=== PATIENT | female | born 1945 | race Caucasian/White ===

== ENCOUNTER 2020-09-18 17:26 | Inpatient (IN) | payer OTHER ==
[~2020-09-18] VITALS: Ht 157.5 cm; Wt 79.7 kg
--- NOTE | 2020-09-18 17:44 | NUR ---
PT BIB EMS FOR CONFUSION, ANXIETY, N/V X2DAYS. PER EMS PT CALLED THEM BECAUSE SHE WAS FEELING CONFUSED. PER EMS STROKE SCALE NEGATIVE. PT AOX0 ON ARRIVAL. HAVING TROUBLE FINDING WORDS. HX OF HTN, NEUROPATHY, IBS, ANXIETY. MONITORS CONNECTED. EKG COMPLETE. WARM BLANKETS PROVIDED. CALL LIGHT W/IN REACH.
--- NOTE | 2020-09-18 17:45 | NUR ---
REPORTED ALTERED MENTAL STATUS TO DR. HAN. REPORTED PT HAVING DIFFICULTY FINDING WORDS.
--- NOTE | 2020-09-18 17:56 | NUR ---
FLUIDS INFUSING PER DR HAN
--- NOTE | 2020-09-18 17:56 | NUR ---
DR HAN AT BEDSIDE FOR ASSESSMENT. DISCUSSED PLAN OF CARE.
[2020-09-18] MEDS ORDERED: HYDROmorphone 2 MG/ML, 1ML ONE (18:26)
[2020-09-18] MEDS ORDERED: ONDANSETRON 2MG/ML, 2ML ONE (18:26)
[2020-09-18] MEDS: HYDROmorphone 2 MG/ML, 1ML IVPush PRN ×2 (18:28→20:09)
[2020-09-18] MEDS ORDERED: SODIUM CHLORIDE 0.9% 1,000ML IVBOLUS ONE ×2 (18:30→20:00)
[2020-09-18] MEDS ORDERED: SODIUM CHLORIDE FLUSH 10ML SYR IVF ONE (18:30)
[2020-09-18] MEDS ORDERED: PLEASE ENTER ALLERGIES MC SCH (18:30)
[2020-09-18] MEDS ORDERED: ONDANSETRON 2MG/ML, 2ML IVPush ONE (18:30)
[2020-09-18 18:41] LABS: MICROSCOPIC INDICATED
[2020-09-18 18:47] LABS: ALBUMIN 3.6 g/dL (3.4-5.0); ANION GAP 12 mmol/L (5-15); CALCIUM 8.6 mg/dL (8.5-10.1); CHLORIDE 116 mmol/L (98-107)
[2020-09-18 18:51] LABS: ALANINE AMINOTRANSFERASE 25 U/L (12-78); ALKALINE PHOSPHATASE 67 U/L (45-117); BILIRUBIN,TOTAL 0.7 mg/dL (0.2-1.0); CREATININE 0.98 mg/dL (0.55-1.02)
--- NOTE | 2020-09-18 19:02 | NUR ---
REPORT GIVEN TO BARRY AMBRIZ
--- NOTE | 2020-09-18 19:15 | NUR ---
patient not present in room. opal also not in room. patient is assumed to be in testing with CT as this is the only test left for patient to complete.
[2020-09-18 19:16] LABS: BASOPHILS % (AUTO) 0 % (0-1); EOSINOPHILS % (AUTO) 0 % (1-7); LYMPHOCYTES % (AUTO) 9 % (22-44); MEAN CORPUSCULAR HGB CONC 33.7 g/dL (32.4-35.8); MONOCYTES % (AUTO) 8 % (2-9); NEUTROPHILS % (AUTO) 83 % (42-75); PLATELET COUNT 152 x10^3/uL (130-400); RED BLOOD COUNT 4.74 x10^6/uL (3.82-5.3); RED CELL DISTRIBUTION WIDTH 14.6 % (9.6-15.2)
[2020-09-18 19:17] LABS: MD NO
[2020-09-18] MEDS ORDERED: OMNIPAQUE 350 MG/ML, 100ML BOTTLE ONE (19:38)
[2020-09-18] MEDS ORDERED: TIZA2CAP PO (19:50)
[2020-09-18] MEDS ORDERED: OXYC20TA42 PO (19:50)
[2020-09-18] MEDS ORDERED: LACT10SO2 PO (19:50)
[2020-09-18] MEDS ORDERED: METO-95 PO (19:50)
[2020-09-18] MEDS ORDERED: SUCR1TAB33 PO (19:50)
[2020-09-18] MEDS ORDERED: ESZO3TAB28 PO (19:50)
[2020-09-18] MEDS ORDERED: BUPR150T8 PO (19:50)
[2020-09-18] MEDS ORDERED: PREG200C PO (19:50)
--- NOTE | 2020-09-18 19:55 | NUR ---
RN in to see patient and patient using cell phone and talking with "a friend". when RN asked what patient's name is, birthday, location and others, patient was not able to answer any of these. when asked questions she is having difficult time finding the words to answer. patient can talk to me about her dog and tells me her dog is really sick and she is trying to have a friend check on him. she is able to use her iPhone without problems, she is able to tell me her ancestory and that she is /[place]. she also can tell me she lives alone and can tell me where her pain is. she is not able to use numeric pain scale to score her pain at this time in RUQ. call antony in reach; safety maintained. patient A&Ox0
[2020-09-18] MEDS ORDERED: POTASSIUM CHLORIDE 40 MEQ in SODIUM CHLORIDE 0.9% 500 ML IV ONE (20:00)
[2020-09-18] MEDS ORDERED: HYDROmorphone 1 MG/ML, 1ML INJ ONE (20:04)
--- NOTE | 2020-09-18 20:26 | NUR ---
TASK RN: STARTED PTS FLUIDS WITH POTASSIUM. PT RESTING WITH NO NEEDS AT THIS TIME.
--- NOTE | 2020-09-18 20:39 | NUR ---
IV's capped and detached for MRI. IV flushed. in NAD. VS remain stable on RA.
--- NOTE | 2020-09-18 21:29 | NUR ---
PATIENT RETURNED FROM MRI. IVF BOLUS AND IV POTASSIUM 500ML BAG RESTARTED. PATIENT RESTING IN BED. DENIES PAIN AND NAUSEA AT THIS TIME. CALL AMBROSE IN REACH. LIGHTS DIMMED PER PATIENT PREFERENCE. WILL CONTINUE TO MONITOR.
--- NOTE | 2020-09-18 22:19 | NUR ---
PATIENT PASSED 1ST SWALLOW EVAL.
--- NOTE | 2020-09-18 23:13 | NUR ---
PATIENT UP TO BSC WITH STANDBY ASSIST. STEADY STAND PIVOT
--- NOTE | 2020-09-19 00:18 | NUR ---
Break nurse: Patient resting at this time, offers no complaints. VSS. Resp easy and unlabored.
[2020-09-19] MEDS: POTASSIUM CHLORIDE 20 MEQ in SODIUM CHLORIDE 0.45% 1,000 ML IV SCH ×2 (01:05→15:38)
--- NOTE | 2020-09-19 01:10 | NUR ---
PATIENT UP TO BSC. A&OX3. STOOL SENT TO LAB. SMALL AMOUNT OF LIQUID WATERY STOOL. IN NAD. CALL AMBROSE IN REACH. SAFETY MAINTAINED. WILL CONTINUE TO MONITOR.
--- NOTE | 2020-09-19 02:08 | NUR ---
UP TO BSC WITH STANDBY ASSIST. BACK TO BED INDEPENDENTLY. CALL AMBROSE IN REACH. PATIENT REPORTING "I FEEL COLD". TEMP 98.6 ORALLY. PATIENT HAS COOL, DRY SKIN
[2020-09-19 02:10] LABS: CLOSTRIDIUM DIFFICILE ANTIGEN NEGATIVE; CLOSTRIDIUM DIFFICILE TOXIN NEGATIVE (Negative)
--- NOTE | 2020-09-19 02:14 | NUR ---
HR ELEVATED DURING BSC USE
[2020-09-19] MEDS ORDERED: ONDANSETRON 2MG/ML, 2ML ONE (02:30)
[2020-09-19] MEDS: ONDANSETRON 2MG/ML, 2ML IVPush PRN ×2 (02:33→15:40)
--- NOTE | 2020-09-19 02:56 | NUR ---
PATIENT TRANSFERRED TO HOSPITAL BED. IN NAD. CALL AMBROSE IN REACH. SAFETY MAINTAINED. VS REMAIN STABLE. ZOFRAN GIVEN AND NAUSEA SUBSIDED. 1/2NS W/ 20K INFUSING PER ORDER. WILL CONTINUE TO MONITOR.
--- NOTE | 2020-09-19 03:20 | NUR ---
PATIENT UP TO BEDSIDE COMMODE. IN NAD. CALL AMBROSE IN REACH SAFETY MAINTAINED. BACK TO BED AND SIDE RAILS UP FOR SAFETY. PATIENT REQUESTED ALL 4 SIDE RAILS BE PUT UP. WILL CONTINUE TO MONITOR.
--- NOTE | 2020-09-19 04:39 | NUR ---
PATIENT UP TO BSC INDEPENDENTLY AFTER UNHOOKING BP CORD. PATIENT STEADY ON FEET. PATIENT HAS BEEN UP TO BSC MULTIPLE TIMES BUT NO DIARRHEA/BM. PATIENT URINATED MINIMALLY A FEW TIMES. IN NAD. CALL AMBROSE IN REACH. SAFETY MAINTAINED. WILL CONTINUE TO MONITOR.
--- NOTE | 2020-09-19 05:20 | NUR ---
PATIENT BLADDER SCANNED. 0ML IN BLADDER. WET TISSUES IN BSC. WILL CONTINUE TO MONITOR.
--- NOTE | 2020-09-19 05:35 | NUR ---
Note undjordin in EDM - 09/19/20 at 0550 by TINA REPORT GIVEN TO AUNG. PATIENT WAS FOUND BY OTHER RN ROAMING THE HALLWAY LOOKING FOR THE BATHROOM. HE WAS WALKED BACK TO HIS ROOM AFTER USING RESTROOM BY BLANE AMBRIZ. PATIENT THEN MOVED TO ROOM 3 [facility]IA [facility]. RN ASSESSED IV THAT WAS PLACED AND PATIENT HAS SELF REMOVED THIS IV AND PARTIALLY REMOVED THE COBAN COVERING IT. THIS WAS FULLY REMOVED FROM PATIENT. CATHETER REMAINS INTACT. ALL PERSONAL BELONGINGS LOCKED IN ER CABINET. PATIENT HAS 1 BAG AND 3 SNEAKERS.
--- NOTE | 2020-09-19 06:14 | NUR ---
PATIENT STATES THAT SHE FEELS UNCOMFORTABLE AND HER TAILBONE IS UNCOMFORTABLE IN THE HOSPITAL BED. I ENCOURAGED PATIENT TO LAY ON HER SIDE. CALL AMBROSE IN REACH. SAFETY MAINTAINED. WILL CONTINUE TO MONITOR. VS REMAIN STABLE ON RA
[2020-09-19 06:30] LABS: BASOPHILS % (AUTO) 1 % (0-1); EOSINOPHILS % (AUTO) 0 % (1-7); LYMPHOCYTES % (AUTO) 11 % (22-44); MEAN CORPUSCULAR HEMOGLOBIN 30.4 pg (27.0-34.8); MEAN CORPUSCULAR HGB CONC 33.9 g/dL (32.4-35.8); MEAN PLATELET VOLUME 9.6 fL (7.4-10.4); MONOCYTES % (AUTO) 10 % (2-9); NEUTROPHILS % (AUTO) 78 % (42-75); PLATELET COUNT 137 x10^3/uL (130-400); RED BLOOD COUNT 4.46 x10^6/uL (3.82-5.3); RED CELL DISTRIBUTION WIDTH 14.4 % (9.6-15.2)
[2020-09-19 06:32] LABS: MD NO
[2020-09-19 06:41] LABS: ALANINE AMINOTRANSFERASE 25 U/L (12-78); ALBUMIN 3.7 g/dL (3.4-5.0); ANION GAP 9 mmol/L (5-15); CALCIUM 8.5 mg/dL (8.5-10.1); CHLORIDE 118 mmol/L (98-107); CREATININE 0.72 mg/dL (0.55-1.02)
[2020-09-19 06:43] LABS: ALKALINE PHOSPHATASE 62 U/L (45-117); BILIRUBIN,TOTAL 0.6 mg/dL (0.2-1.0); TOTAL PROTEIN 6.6 g/dL (6.4-8.2)
--- NOTE | 2020-09-19 06:44 | NUR ---
PATIENT USED CALL LIGHT TO NOTIFY ME THAT HER CELL PHONE WAS WET. CALL AMBROSE IN REACH. SAFETY MAINTAINED. WILL CONTINUE TO MONITOR.
--- NOTE | 2020-09-19 07:00 | NUR ---
REPORT GIVEN TO BIANCA AMBRIZ
--- NOTE | 2020-09-19 08:13 | NUR ---
FRIEND, CEDRIC LEE: [phone]
--- NOTE | 2020-09-19 08:42 | NUR ---
BREAK RN: CALL TO DR. ZAMORA TO REQUEST PAIN MEDS FOR PT. SHE WILL BE HERE TO SEE THE PATIENT SHORTLY AND WILL EVALUATE FOR PAIN MEDS AT THAT TIME.
[2020-09-19] MEDS ORDERED: OXYcodone IR 5MG TABLET ONE (09:00)
[2020-09-19] MEDS ORDERED: OXYcodone IR 5MG TABLET PO ONE (09:00)
--- NOTE | 2020-09-19 10:51 | NUR ---
PT ASSISTED TO BEDSIDE COMMODE. PT STILL EXPERIENCING DIARRHEA AND BOUTS OF ABD PAIN. PT STATES PAIN HAS IMPROVED WITH PAIN MEDICATION. PT PLACED BACK IN BED, CALL LIGHT WITHIN REACH, AND REMINDED TO CALL FOR ASSISTANCE WHEN NEEDING TO GET UP.
[2020-09-19] MEDS ORDERED: POTASSIUM CHLORIDE 40 MEQ in SODIUM CHLORIDE 0.9% 500 ML IV ONE (12:00)
--- NOTE | 2020-09-19 12:07 | NUR ---
BREAK RN: PATIENT MEDICATED PER eMAR, WELLBUTRIN REQUESTED FROM PHARMACY. NADN, PATIENT RESTING IN HOSPITAL BED WATCHING TV, VSS, CALL LIGHT WITHIN REACH. WAITING FOR ROOM ASSIGNMENT UPSTAIRS.
[2020-09-19] MEDS: BUPROPION SR 150 MG TABLET PO SCH (12:24)
--- NOTE | 2020-09-19 12:28 | NUR ---
BREAK RN: ATTEMPTED TO CALL REPORT.
[2020-09-19] MEDS ORDERED: PREGABALIN 100 MG CAPSULE PO SCH (13:00)
--- NOTE | 2020-09-19 13:04 | NUR ---
PHONE REPORT TO PB KRAMER
[2020-09-19 13:50] VITALS: BP 145/76
[2020-09-19 14:11] VITALS: BP 145/76
[2020-09-19] MEDS ORDERED: LOPERAMIDE 2 MG CAPSULE PO PRN (17:00)
[2020-09-19] MEDS: OXYcodone IR 5MG TABLET PO PRN (18:51)
[2020-09-19 19:17] VITALS: BP 126/75
[2020-09-19] MEDS ORDERED: METOPROLOL SUCCINATE 50 MG TAB.ER.24H PO SCH (21:00)
[2020-09-19] MEDS: PREGABALIN 75 MG CAPSULE PO SCH (21:36)
[2020-09-20 01:10] VITALS: BP 110/70
[2020-09-20] MEDS: POTASSIUM CHLORIDE 20 MEQ in SODIUM CHLORIDE 0.45% 1,000 ML IV SCH (01:17)
[2020-09-20] MEDS: OXYcodone IR 5MG TABLET PO PRN ×3 (02:53→17:55)
[2020-09-20 05:20] LABS: BASOPHILS % (AUTO) 0 % (0-1); EOSINOPHILS % (AUTO) 0 % (1-7); LYMPHOCYTES % (AUTO) 20 % (22-44); MEAN CORPUSCULAR HEMOGLOBIN 30.3 pg (27.0-34.8); MEAN CORPUSCULAR HGB CONC 33.6 g/dL (32.4-35.8); MEAN PLATELET VOLUME 10.1 fL (7.4-10.4); MONOCYTES % (AUTO) 8 % (2-9); NEUTROPHILS % (AUTO) 72 % (42-75); PLATELET COUNT 139 x10^3/uL (130-400); RED CELL DISTRIBUTION WIDTH 14.4 % (9.6-15.2)
[2020-09-20 05:25] LABS: MD NO
[2020-09-20 05:29] LABS: ALBUMIN 3.5 g/dL (3.4-5.0); ANION GAP 9 mmol/L (5-15); CALCIUM 8.6 mg/dL (8.5-10.1); CHLORIDE 114 mmol/L (98-107)
[2020-09-20 05:35] LABS: ALANINE AMINOTRANSFERASE 27 U/L (12-78); ALKALINE PHOSPHATASE 59 U/L (45-117); BILIRUBIN,TOTAL 0.7 mg/dL (0.2-1.0); CREATININE 0.62 mg/dL (0.55-1.02); TOTAL PROTEIN 6.5 g/dL (6.4-8.2)
[2020-09-20] MEDS ORDERED: POTASSIUM CHLORIDE 20 MEQ TAB.ER.PRT PO ONE (06:30)
[2020-09-20 07:39] VITALS: BP 116/75
[2020-09-20] MEDS: PREGABALIN 75 MG CAPSULE PO SCH (09:18)
[2020-09-20] MEDS: K-PHOS NEUTRAL 250MG TAB PO SCH ×2 (09:18→20:21)
[2020-09-20] MEDS: BUPROPION SR 150 MG TABLET PO SCH (09:18)
[2020-09-20] MEDS: METOPROLOL SUCCINATE 50 MG TAB.ER.24H PO SCH (09:19)
[2020-09-20] MEDS: PANTOPRAZOLE 40MG TABLET PO SCH (10:04)
[2020-09-20 12:21] VITALS: BP 120/74
[2020-09-20] MEDS ORDERED: MAALOX/HYOSCYAMINE/LIDOCAINE 45 ML BTL PO ONE (14:30)
[2020-09-20] MEDS ORDERED: PREGABALIN 75 MG CAPSULE PO SCH (16:00)
[2020-09-20] MEDS: PREGABALIN 100 MG CAPSULE PO SCH ×2 (17:56→20:21)
[2020-09-20 19:15] VITALS: BP 113/70
[2020-09-21 00:49] VITALS: BP 108/72
[2020-09-21] MEDS: OXYcodone IR 5MG TABLET PO PRN ×3 (02:12→17:25)
[2020-09-21] MEDS: PANTOPRAZOLE 40MG TABLET PO SCH (05:21)
[2020-09-21 07:34] VITALS: BP 128/82
[2020-09-21] MEDS: PREGABALIN 100 MG CAPSULE PO SCH ×2 (07:55→16:17)
[2020-09-21] MEDS: BUPROPION SR 150 MG TABLET PO SCH (07:55)
[2020-09-21] MEDS: K-PHOS NEUTRAL 250MG TAB PO SCH (07:55)
[2020-09-21] MEDS: METOPROLOL SUCCINATE 50 MG TAB.ER.24H PO SCH (07:55)
[2020-09-21 08:15] LABS: ANION GAP 8 mmol/L (5-15); CALCIUM 9.2 mg/dL (8.5-10.1); CHLORIDE 112 mmol/L (98-107); CREATININE 0.65 mg/dL (0.55-1.02)
[2020-09-21 14:59] VITALS: BP 103/68
[2020-09-21] MEDS ORDERED: MAGN400T26 PO (15:24)
[2020-09-21] MEDS ORDERED: PANT40TA6 PO (15:24)
[2020-09-21] MEDS ORDERED: MULT-449 PO (15:24)
[2020-09-21] MEDS ORDERED: POTASSIUM CHLORIDE 20 MEQ TAB.ER.PRT PO ONE (15:30)
== END 2020-09-21 17:52 | disposition home or self-care (01) | DRG 65 ==
LOC: ED 17:56 → EDIP 22:16 → 3N 09-19 13:46
PROVIDERS: ADMIT Internal Medicine; ATTEND Internal Medicine
PROC: 0T9B30Z Drainage of Bladder with Drainage Device, Percutaneous Approach (ICD-10-PCS; principal; 2020-09-18)
DX: I63.81 Other cerebral infarction due to occlusion or stenosis of small artery (principal); E87.2 Acidosis; G93.40 Encephalopathy, unspecified; E83.39 Other disorders of phosphorus metabolism; E86.0 Dehydration; E87.6 Hypokalemia; F32.9 Major depressive disorder, single episode, unspecified; F41.9 Anxiety disorder, unspecified; G47.00 Insomnia, unspecified; G62.9 Polyneuropathy, unspecified; G89.29 Other chronic pain; I10 Essential (primary) hypertension; K52.9 Noninfective gastroenteritis and colitis, unspecified; K58.9 Irritable bowel syndrome, unspecified; Z20.822 Contact with and (suspected) exposure to COVID-19
CPT/HCPCS: 36415; 70450; 70551; 71045; 74018; 74177; 80048; 80053; 81001; 82140; 83605; 83690; 83735; 83880; 84100; 85025; 87040; 87046; 87324; 87427; 89055; 93005; 93880; 96361; 96374; 96375; 96376; 99285; 99291; G0378; J1170; J2405; J3480; Q9967; J7030; J7040; U0003